=== PATIENT | male | born 1980 | race Caucasian/White ===

== ENCOUNTER 2021-10-30 14:03 | Emergency (ER) | payer SELFPAY | END 2021-10-30 16:31 | LOC: MW.ED 14:03 | DX: R55 Syncope and collapse (principal); I25.2 Old myocardial infarction; I10 Essential (primary) hypertension; Z86.73 Personal history of transient ischemic attack (TIA), and cerebral infarction without residual deficits; Z86.16 Personal history of COVID-19; Z88.8 Allergy status to other drugs, medicaments and biological substances | CPT/HCPCS: 99284 ==

== ENCOUNTER 2021-12-17 19:11 | Emergency (ER) | payer MEDICAID ==
[2021-12-17] MEDS ORDERED: Sodium Chloride 0.9% 2.5 ML Syringe FLUSH PRN (19:16)
[2021-12-17] MEDS ORDERED: Sodium Chloride 0.9% 10 ML Syringe FLUSH PRN (19:16)
[2021-12-17] MEDS ORDERED: Dexamethasone 10 MG/ML SDV IVPUSH ONE (19:16)
[2021-12-17] MEDS ORDERED: diphenhydrAMINE 50 MG/ML SDV IVPUSH ONE (19:16)
[2021-12-17] MEDS ORDERED: Famotidine 20 MG/2 ML SDV IVPUSH ONE (19:16)
[2021-12-17] MEDS ORDERED: Sodium Chloride 0.9% 1,000 ML IV ONE (19:17)
[2021-12-17] MEDS ORDERED: Ondansetron 4 MG/2 ML SDV IVPUSH STA (19:28)
== END 2021-12-17 21:40 ==
LOC: MW.ED 19:11
DX: T78.2XXA Anaphylactic shock, unspecified, initial encounter (principal); I48.91 Unspecified atrial fibrillation; I11.9 Hypertensive heart disease without heart failure; I25.2 Old myocardial infarction; Z95.0 Presence of cardiac pacemaker; Z86.73 Personal history of transient ischemic attack (TIA), and cerebral infarction without residual deficits; Z86.16 Personal history of COVID-19; Z91.018 Allergy to other foods; Z88.5 Allergy status to narcotic agent
CPT/HCPCS: 96361; 96374; 96375; 99284; J1100; J1200; J2405; J3490; J7030

== ENCOUNTER 2022-01-31 20:06 | Emergency (ER) | payer MEDICAID ==
[2022-01-31] MEDS ORDERED: methylPREDNISolone Sodium Succinate 125 MG/2 ML SDV IVPUSH ONE (20:08)
[2022-01-31] MEDS ORDERED: Sodium Chloride 0.9% 1,000 ML IV ONE (20:08)
== END 2022-01-31 23:47 | disposition home or self-care (01) ==
LOC: MW.ED 20:06
DX: T78.2XXA Anaphylactic shock, unspecified, initial encounter (principal); I25.2 Old myocardial infarction; I11.9 Hypertensive heart disease without heart failure; Z95.0 Presence of cardiac pacemaker; Z88.5 Allergy status to narcotic agent; Z88.8 Allergy status to other drugs, medicaments and biological substances; Z91.018 Allergy to other foods; Z86.73 Personal history of transient ischemic attack (TIA), and cerebral infarction without residual deficits; Z86.16 Personal history of COVID-19
CPT/HCPCS: 96361; 96374; 99285; J2930; J7030

== ENCOUNTER 2022-03-24 20:14 | Emergency (ER) | payer MEDICAID ==
[2022-03-24] MEDS ORDERED: EPINEPHrine 1:10,000 1 MG/10 ML Syringe IVPUSH ONE (20:15)
[2022-03-24] MEDS ORDERED: Etomidate 2 MG/ML 20 ML SDV IVPUSH ONE (20:20)
[2022-03-24] MEDS ORDERED: Succinylcholine 200 MG/10 ML MDV IV STA (20:20)
[2022-03-24] MEDS ORDERED: propofoL 100 ML IV SCH (20:30)
[2022-03-24] MEDS ORDERED: Midazolam 1 MG/ML 2 ML SDV ONE (20:33)
[2022-03-24] MEDS ORDERED: Rocuronium 100 MG/10 ML MDV IVPUSH STA (20:35)
[2022-03-24] MEDS ORDERED: Propofol 200 MG/20 ML SDV IVPUSH ONE (20:38)
[2022-03-24 21:09] LABS: CARBON DIOXIDE,CO2 25.4 mmol/L (21.0-32.0); POTASSIUM,K 2.9 mmol/L (3.5-5.1)
== END 2022-03-24 21:20 ==
LOC: MW.ED 20:14
DX: T78.2XXA Anaphylactic shock, unspecified, initial encounter (principal); I10 Essential (primary) hypertension; I25.2 Old myocardial infarction; Z88.8 Allergy status to other drugs, medicaments and biological substances; Z91.018 Allergy to other foods; Z79.899 Other long term (current) drug therapy; Z86.16 Personal history of COVID-19; Z20.822 Contact with and (suspected) exposure to COVID-19
CPT/HCPCS: 31500; 36415; 43752; 51702; 71045; 80053; 81001; 85025; 87635; 99285; J0171; J0330; J2704; J3490; 99291; U0002

== ENCOUNTER 2022-04-08 19:54 | Emergency (ER) | payer MEDICAID ==
[~2022-04-08 19:54] MED LIST: EPINEPHrine 1 MG/1 ML Amp ONE; methylPREDNISolone Sodium Succinate 125 MG/2 ML SDV ONE
[2022-04-08] MEDS: methylPREDNISolone Sodium Succinate 125 MG/2 ML SDV IVPUSH ONE (20:11)
[2022-04-08] MEDS: EPINEPHrine 1 MG/1 ML Amp IM ONE (20:11)
[2022-04-08] MEDS: Albuterol 0.5% 5 MG/ML Neb Soln 20 ML Bottle NEB ONE (20:12)
== END 2022-04-09 00:05 ==
LOC: MW.ED 19:54
DX: T78.2XXA Anaphylactic shock, unspecified, initial encounter (principal); I10 Essential (primary) hypertension; Z88.8 Allergy status to other drugs, medicaments and biological substances; Z91.018 Allergy to other foods; Z79.899 Other long term (current) drug therapy; Z86.16 Personal history of COVID-19
CPT/HCPCS: 96372; 96374; 99283; J0171; J2930